=== PATIENT | male | born 2000 | race Hispanic/Latino ===

== ENCOUNTER 2024-01-08 23:34 | Emergency (ER) | payer MEDICAID, SELFPAY ==
[2024-01-08 23:54] LABS: Bacteria/HPF None Seen HPF (None Seen); Bilirubin Negative (Negative); Blood, Urine Negative (Negative); CAUTI Indications for Culture Pelvic or flank pain; Clarity Clear (Clear); Glucose, Urine (Dipstick) Normal (Negative); Ketone, Urine Negative (Negative); Leukocyte Negative Leu/uL (Negative); Nitrite Negative (Negative); Protein, Urine (Dipstick) Negative (Neg-Trace); RBC/HPF 0-3 HPF (0-3); Specific Gravity, Urine 1.001 (1.002-1.036); Squamous Epithelial None Seen HPF (0-3); Urobilinogen Normal mg/dL (Less than 2); WBC/HPF None Seen HPF (0-3); pH, Urine 6.5 (5.0-9.0)
[2024-01-09 00:05] LABS: Urine Culture Reflex No No
[2024-01-09 00:25] LABS: #Basophils 0.03 10x3/uL (0.0-0.2); %Basophils 0.5 % (0.0-1.0); %Eosinophils 2.2 % (0.0-10.0); %Lymphocytes 27.5 % (21.0-51.0); %Monocytes 7.5 % (0.0-10.0); %Neutrophils 61.9 % (42.0-75.0); Hematocrit 41.1 % (42.0-52.0); Hemoglobin 14.2 g/dL (14.0-18.0); Mean Corpuscular HGB CONC 34.5 g/dL (32.0-36.0); Mean Corpuscular Hemoglobin 31.1 pg (27.0-31.0); Mean Corpuscular Volume 89.9 fL (78.0-98.0); Mean Platelet Volume 9.1 fL (7.4-10.4); Platelet Count 270 10x3/uL (130-400); Red Blood Cell (RBC) Count 4.57 mill/uL (4.70-6.10)
[2024-01-09 00:39] LABS: ALT (SGPT) 22 U/L (8-55); AST (SGOT) 28 U/L (5-34); Albumin 4.3 g/dL (3.5-5.0); Alkaline Phosphatase 73 U/L (40-110); Anion Gap 13 mmol/L (10-20); BUN (Urea Nitrogen) 7 mg/dL (8.9-20.6); Bilirubin, Total 0.4 mg/dL (0.2-1.2); Calc. Creatinine Clearance 0 mL/min (70-130); Calcium 9.2 mg/dL (7.8-10.44); Carbon Dioxide 22 mmol/L (22-29); Chloride 110 mmol/L (98-107); Estimated GFR 125; Globulin 3.4 g/dL (2.4-3.5); Glucose 97 mg/dL (70-105); Lipase 19 U/L (8-78); Potassium 4.3 mmol/L (3.5-5.1); Protein, Total 7.7 g/dL (6.0-8.3); Sodium 141 mmol/L (136-145)
[2024-01-09] MEDS ORDERED: Ketorolac Tromethamine 30 MG (1 mL) VIAL ONE (00:43)
[2024-01-09] MEDS ORDERED: Morphine 4 MG/ML VIAL ONE (00:53)
[2024-01-09] MEDS ORDERED: Iopamidol-370 76% 500 ML MDV (1 ML CHARGE) ONE (11:19)
[2024-01-09] MEDS ORDERED: GASTROGRAFIN 30 ML BOT ONE (11:19)
== END 2024-01-09 05:25 | disposition home or self-care (01) ==
LOC: ERS 23:34
DX: K52.9 Noninfective gastroenteritis and colitis, unspecified (principal)
CPT/HCPCS: 36415; 74177; 80053; 81001; 83690; 85025; 93005; 96361; 96374; 96375; J1885; J2272; Q9963; Q9967